=== PATIENT | female | born 1975 | race Caucasian/White ===

== ENCOUNTER → 2020-11-14 10:42 | Outpatient (CLI) | payer OTHER, SELFPAY ==
--- NOTE | ~2020-11-14 | MM_ITS ---
EXAMINATION: MM screening [facility] w [facility] HISTORY: Screening mammogram TECHNIQUE: Craniocaudal and mediolateral oblique 3-D tomosynthesis images were obtained and synthetic 2-D images were generated. CAD analysis was submitted and interpreted. COMPARISON: 08/19/2019, 08/14/2018, 08/12/2017, 03/18/2016 BREAST PARENCHYMAL COMPOSITION: The breasts are heterogeneously dense, which may obscure small masses . FINDINGS: There is no evidence of suspicious mass, calcification, or architectural distortion to sugg est malignancy in either breast. There has been no suspicious interval change. IMPRESSION: 1. No mammographic evidence of malignancy. 2. Recommend routine screening mammography in one year. BI-RADS Category 1: Negative Reviewed, dictated and finalized at location A.
== END ==
PROVIDERS: PCP Internal Medicine; Visit Provider Nurse Practitioner Obstetrics & Gynecology
DX: Z12.31 Encounter for screening mammogram for malignant neoplasm of breast (principal)
CPT/HCPCS: 77063; 77067

== ENCOUNTER → 2022-04-09 15:56 | Outpatient (CLI) | payer OTHER, SELFPAY ==
--- NOTE | ~2022-04-09 | MM_ITS ---
EXAMINATION: MM screening [facility] HISTORY: Screening TECHNIQUE: Craniocaudal and mediolateral oblique 3-D tomosynthesis images were obtained and synthetic 2-D images were generated. CAD analysis was submitted and interpreted. COMPARISON: Comparison to multiple prior studies sequentially, with oldest reviewed study dated 03/06. BREAST PARENCHYMAL COMPOSITION: There are scattered areas of fibroglandular density. FINDINGS: There is no evidence of suspicious mass, calcification, or architectural distortion to sugg est malignancy in either breast. There has been no suspicious interval change. IMPRESSION: 1. No mammographic evidence of malignancy. 2. Recommend routine screening mammography in one year. BI-RADS Category 1: Negative Reviewed, dictated and finalized at location A.
== END ==
PROVIDERS: PCP Nurse Practitioner Obstetrics & Gynecology; Visit Provider Nurse Practitioner Obstetrics & Gynecology
DX: Z12.31 Encounter for screening mammogram for malignant neoplasm of breast (principal)
CPT/HCPCS: 77063; 77067

== ENCOUNTER → 2023-07-09 14:49 | Outpatient (CLI) | payer OTHER, SELFPAY ==
--- NOTE | ~2023-07-09 | MM_ITS ---
EXAMINATION: MM screening [facility] HISTORY: Screening mammogram TECHNIQUE: Craniocaudal and mediolateral oblique 3-D tomosynthesis images were obtained and synthetic 2-D images were generated. Rotated lateral craniocaudal view right breast. ..CAD analysis was submit anabel and interpreted. COMPARISON: 04/09/2022, 11/14/2020, 08/19/2019 bilateral screening mammogram examinations BREAST PARENCHYMAL COMPOSITION: There are scattered areas of fibroglandular density. FINDINGS: There is no evidence of suspicious mass, calcification, or architectural distortion to sugg est malignancy in either breast. There has been no suspicious interval change. IMPRESSION: 1. No mammographic evidence of malignancy. 2. Recommend routine screening mammography in one year. BI-RADS Category 1: Negative Reviewed, dictated and finalized at location A. RIAL CUTTER
== END ==
PROVIDERS: PCP Nurse Practitioner Obstetrics & Gynecology; Visit Provider Nurse Practitioner Obstetrics & Gynecology
DX: Z12.31 Encounter for screening mammogram for malignant neoplasm of breast (principal)
CPT/HCPCS: 77063; 77067

== ENCOUNTER 2024-03-03 07:00 | Outpatient (NON) | payer OTHER, SELFPAY | END 2024-03-03 07:01 | disposition home or self-care (01) | LOC: ANHLAB 03-04 07:10 | PROVIDERS: PCP Internal Medicine; Visit Provider Internal Medicine Gastroenterology | DX: K51.90 Ulcerative colitis, unspecified, without complications (principal) | CPT/HCPCS: 88305 ==

== ENCOUNTER 2024-03-03 09:50 | Day surgery (SDC) | payer OTHER, SELFPAY ==
[2024-02-17 13:34] VITALS: BMI 28.1
[2024-02-18 09:20] VITALS: BMI 24.0
[2024-03-03 10:11] VITALS: BP 105/69; PULSE 64; RESP 15; TEMP 37.3; O2SAT 100
[2024-03-03] MEDS: LACTATED RINGERS 1,000 ML 150 ML IV CONT (10:14)
--- NOTE | 2024-03-03 10:44 | PM.HPGS ---
History of Present Illness History of Present Illness Consent: Risks, benefits, and alternatives have been discussed and questions answered. Patient agrees to proceed with procedure. Chief complaint: Ulcerative colitis Narrative: Shaye Lock is a 48 year old female presents for screening colonoscopy. Patient reports her current weight appetite and bowel movements are normal. She has had no recent bleeding or abdominal pain. Has had ulcerative colitis for more than 20 years. Currently stable on Lialda 4.8g p.o. daily. Patient reports having had 2 flares of inflammatory bowel disease in the last year. These have responded with short course of steroids. Patient's last screening colonoscopy was 5 years ago. Patient presents today for screening exam. Family history noncontributory. Review of Systems Review of Systems: All systems reviewed & are unremarkable except as noted in HPI and below PMFSH Social History Social History Smoking status: Never smoker Second hand tobacco smoke exposure: No Alcohol intake: never Substance use: never Substance use type: does not use Living arrangements: with family Occupation/Education: occupation Gender identity (if verbalized by the patient): Female Spiritual care concerns: No Meds Home Medications and Allergies Home Medications Medication Instructions Recorded Confirmed Type escitalopram oxalate 10 mg tablet 10 mg PO DAILY 02/07/22 03/03/24 History (Lexapro) metoprolol succinate 25 mg 12.5 mg PO DAILY 02/07/22 03/03/24 History tablet,extended release 24 hr mesalamine 1.2 gram tablet,delayed 4.8 g PO DAILY 3 months #360 tabs 12/04/23 03/03/24 Rx release (Lialda) prednisone 5 mg tablet 5 mg PO DIRECTED #70 tabs 02/03/24 03/03/24 Rx Allergies Allergy/AdvReac Type Severity Reaction Status Date / Time No Known Allergies Allergy Mild Verified 03/03/24 10:05 Vital Signs Vital Signs - 24 hr 03/03/24 10:11 Temperature 99.2 F Pulse Rate 64 Respiratory Rate 15 Blood Pressure 105/69 Pulse Oximetry 100 Oxygen Delivery Room Air Exam Narrative: Physical exam reveals patient to be alert. Vital signs stable. HEENT exam is unremarkable. Patient is anicteric. Lungs are clear to auscultation and to percussion. Is without murmur or extra sounds. Abdomen bowel sounds are present soft nontender with no organomegaly. Digital external rectal exam normal. Assessment and Plan Assessment and plan (1) Ulcerative colitis: Code(s): K51.90 - Ulcerative colitis, unspecified, without complications Status: Acute Assessment and Plan: Patient with history of ulcerative colitis for many years. Currently in clinical remission. Plan to proceed with colonoscopy. Surveillance colonoscopy is will need to be performed to will given the duration of her disease. Continue Lialda for now. Further recommendations may be given after endoscopy.
--- NOTE | 2024-03-03 11:05 | P.PNAN_ITS ---
Anes - Initial Pre Proc Eval Procedure: Operation Date: 03/03/24 11:30 Proposed Procedures p Diagnostic Colonoscopy - Anthony Goetz MD Date/Time: 03/03/24 11:05 Surgeon: Anthony Goetz MD Pre Op Diagnosis: Ulcerative colitis Patient Data Age: 48 Gender: F Height: 1.63 m Weight: 62.4 kg Last Vital Signs Temp 37.3 C 03/03/24 10:11 Pulse 64 03/03/24 10:11 Resp 15 03/03/24 10:11 BP 105/69 03/03/24 10:11 Pulse Ox 100 03/03/24 10:11 O2 Del Method Room Air 03/03/24 10:11 Allergies Allergy/AdvReac Type Severity Reaction Status Date / Time No Known Allergies Allergy Mild Verified 03/03/24 10:05 Home Medications Medication Instructions Recorded Confirmed Type escitalopram oxalate 10 mg tablet 10 mg PO DAILY 02/07/22 03/03/24 History (Lexapro) metoprolol succinate 25 mg 12.5 mg PO DAILY 02/07/22 03/03/24 History tablet,extended release 24 hr mesalamine 1.2 gram tablet,delayed 4.8 g PO DAILY 3 months #360 tabs 12/04/23 03/03/24 Rx release (Lialda) prednisone 5 mg tablet 5 mg PO DIRECTED #70 tabs 02/03/24 03/03/24 Rx Patient hx anesthesia problems: none Family hx anesthesia problems: none Results Review: All pre-operative results and documents have been reviewed as part of the pre- operative evaluation. [facility] Past Medical History Medical History (Updated 03/03/24 @ 11:05 by Matthew Varner MD) Ulcerative colitis Social History Social History Smoking status: Never smoker Second hand tobacco smoke exposure: No Alcohol intake: never Substance use: never Substance use type: does not use Living arrangements: with family Occupation/Education: occupation Gender identity (if verbalized by the patient): Female Spiritual care concerns: No Anes - Eval Final PreProcedure Day of Procedure 03/03/24 11:05 Patient weight: normal Heart: regular rate and rhythm Lungs: clear to auscultation Airway: Mallampati scale class II Neurological: alert and oriented Last oral intake: >/= 8 hours ASA classification: II Emergent: no Anesthetic plan: proceed Anesthesia type and monitoring: general GIVS and standard monitoring Results Review: All pre-operative results and documents have been reviewed as part of the pre- operative evaluation. Informed Consent: The patient's anesthetic plan and its attendant risks and benefits were discussed with the patient/family/POA. Questions were solicited and answers provided to the satisfaction of the patient/family/POA.
[2024-03-03 12:13] VITALS: BP 92/55; PULSE 68; RESP 16; O2SAT 100
--- NOTE | 2024-03-03 12:18 | WPDANESPN ---
Anes - Prog Note Post-Op Date/Time: 03/03/24 12:18 Cardiovascular status: normal Respiratory status: normal Airway patency: baseline Mental status: baseline Post-Op hydration status: normal Vital Signs: Last Vital Signs Temp 37.3 C 03/03/24 10:11 Pulse 64 03/03/24 10:11 Resp 15 03/03/24 10:11 BP 105/69 03/03/24 10:11 Pulse Ox 100 03/03/24 10:11 O2 Del Method Room Air 03/03/24 10:11 Pain Score (VAS): 0/10 I/O: Intake & Output 03/02/24 03/03/24 03/03/24 23:59 07:59 15:59 Intake Total 300 Balance 300 Patient Feedback: Patient satisfied with anesthetic care.
[2024-03-03 12:23] VITALS: BP 91/55; PULSE 62; RESP 16; O2SAT 100
[2024-03-03 12:33] VITALS: BP 90/54; PULSE 62; RESP 16; O2SAT 100
== END 2024-03-03 12:50 | disposition home or self-care (01) ==
PROVIDERS: PCP Internal Medicine; Visit Provider Internal Medicine Gastroenterology
PROC: 0DJD8ZZ Inspection of Lower Intestinal Tract, Via Natural or Artificial Opening Endoscopic (ICD-10-PCS; CPT 45378; principal; 2024-03-03 11:30)
DX: Z12.11 Encounter for screening for malignant neoplasm of colon (principal); D12.0 Benign neoplasm of cecum; K64.8 Other hemorrhoids; K51.50 Left sided colitis without complications
CPT/HCPCS: 45385; 45380

== ENCOUNTER 2024-09-21 15:23 | Outpatient (CLI) | payer OTHER, SELFPAY ==
--- NOTE | ~2024-09-21 | MM_ITS ---
EXAMINATION: MM screening [facility] HISTORY: Screening TECHNIQUE: Craniocaudal and mediolateral oblique 3-D tomosynthesis images were obtained and synthetic 2-D images were generated. CAD analysis was submitted and interpreted. COMPARISON: Comparison to multiple prior studies sequentially, with oldest reviewed study dated 07/19. BREAST PARENCHYMAL COMPOSITION: Not dense: There are scattered areas of fibroglandular density. FINDINGS: There is no evidence of suspicious mass, calcification, or architectural distortion to sugg est malignancy in either breast. There has been no suspicious interval change. IMPRESSION: 1. No mammographic evidence of malignancy. 2. Recommend routine screening mammography in one year. BI-RADS Category 1: Negative Reviewed, dictated and finalized at location B. RPLANT OPERATOR
== END 2024-09-21 15:24 | disposition home or self-care (01) ==
LOC: MICIMG 15:23
PROVIDERS: PCP Internal Medicine; Visit Provider Obstetrics & Gynecology
DX: Z12.31 Encounter for screening mammogram for malignant neoplasm of breast (principal)
CPT/HCPCS: 77063; 77067